=== PATIENT | male | born 1955 | race Two or more races ===

== ENCOUNTER 2021-10-06 13:09 | Emergency (ER) | payer OTHER ==
[~2021-10-06] VITALS: Ht 177.8 cm; Wt 64.9 kg
[2021-10-06] MEDS ORDERED: ATORVASTATIN CA10 MG PO (14:29)
[2021-10-06] MEDS ORDERED: IRBESARTAN150 MG PO (14:29)
[2021-10-06] MEDS ORDERED: METFORMIN HCL500 M4 PO (14:29)
== END 2021-10-06 17:23 | disposition home or self-care (01) ==
LOC: ER 13:09
DX: E11.65 Type 2 diabetes mellitus with hyperglycemia (principal); Z79.84 Long term (current) use of oral hypoglycemic drugs; I10 Essential (primary) hypertension